=== PATIENT | male | born 1980 | race Caucasian/White ===

== ENCOUNTER 2017-05-09 20:42 | Emergency (ER) | payer MEDICAID ==
[2017-05-09 21:08] VITALS: BP 139/86; PULSE 83; RESP 18; TEMP 98.5; O2SAT 99
--- NOTE | 2017-05-09 21:18 | ED PDOC ---
HPI: Eye Injury/Pain Time Seen by Provider: 05/09/17 21:14 Chief Complaint (Nursing): Eye Problem Chief Complaint (Provider): Right eye redness and driange for 3 days History Per: Patient History/Exam Limitations: no limitations Onset/Duration Of Symptoms: Days Current Symptoms Are (Timing): Still Present Injury To Eye?: No Quality: Dull Associated Symptoms: FB Sensation, Itching Additional Complaint(s): Pt states when it first started he thought it was a sty because he gets them often. Pt states but it is different. PT reports clear yeallow crusty drainage. No change in vision. Past Medical History Reviewed: Historical Data, Nursing Documentation, Vital Signs Vital Signs: Last Vital Signs Temp 98.5 F 05/09/17 21:04 Pulse 83 05/09/17 21:04 Resp 18 05/09/17 21:04 BP 139/86 05/09/17 21:04 Pulse Ox 99 05/09/17 21:04 - Medical History PMH: Asthma Denies: Chronic Kidney Disease - Surgical History Surgical History: No Surg Hx - Family History Family History: States: Unknown Family Hx, Diabetes, Hypertension - Living Arrangements Living Arrangements: With Family - Social History Current smoker - smoking cessation education provided: No Alcohol: None Drugs: Denies - Immunization History Hx Tetanus Toxoid Vaccination: Yes Hx Influenza Vaccination: No Hx Pneumococcal Vaccination: Yes - Home Medications Home Medications: Ambulatory Orders Medication Instructions Recorded Albuterol Sulfate [Albuterol Hfa] 2 puff IH Q4 PRN #1 unit 07/27/15 Albuterol Sulfate [Albuterol 3 ml NEB Q6 PRN 07/27/15 Sulfate 2.5mg/3 ml 0.083%] Ibuprofen [Motrin] 1 tab PO TID PRN #30 tab 09/28/15 Promethazine HCl/Codeine 5 ml PO BID #1 syr 09/28/15 [Promethazine HCl-Codeine Phosphate 10 mg/5 ml] predniSONE [Prednisone] 20 mg PO BID #10 tab 09/28/15 Albuterol HFA [Ventolin HFA 90 2 puff IH Q4 PRN #1 inh 10/02/16 mcg/actuation (8 g)] Fluticasone/Salmeterol 250/50 1 puff IH Q12 #1 inh 10/02/16 [Advair Diskus] predniSONE [predniSONE Tab] 60 mg PO DAILY 5 Days 10/02/16 Polymyxin/Trimethoprim Sulfate 1 drop XX Q6H 10 Days 05/09/17 [Polytrim Ophth Soln] - Allergies Allergies/Adverse Reactions: Allergies Allergy/AdvReac Type Severity Reaction Status Date / Time No Known Allergies Allergy Verified 10/01/16 19:20 Review of Systems ROS Statement: Except As Marked, All Systems Reviewed And Found Negative Constitutional: Negative for: Fever, Chills Eyes: Positive for: Conjunctivae Inflammation, Eyelid Inflammation, Redness. Negative for: Vision Change Physical Exam - Reviewed Nursing Documentation Reviewed: Yes Vital Signs Reviewed: Yes - Physical Exam Appears: Positive for: Well, Non-toxic, No Acute Distress Head Exam: Positive for: ATRAUMATIC, NORMAL INSPECTION, NORMOCEPHALIC Skin: Positive for: Normal Color, Warm, DRY Eye Exam: Positive for: EOMI, PERRL, Conjunctival injection, Other (Yellow crutsy drainage on eye lashes ). Negative for: Normal appearance ENT: Positive for: Normal ENT Inspection Neck: Positive for: Normal, Painless ROM Respiratory: Negative for: Accessory Muscle Use, Respiratory Distress Back: Positive for: Normal Inspection Extremity: Positive for: Normal ROM. Negative for: Tenderness Neurologic/Psych: Positive for: Alert, Oriented - ECG O2 Sat by Pulse Oximetry: 99 Disposition - Clinical Impression Clinical Impression: Bacterial conjunctivitis - Patient ED Disposition Is Patient to be Admitted: No Counseled Patient/Family Regarding: Diagnosis, Need For Followup, Rx Given - Disposition Referrals: Gee Parekh MD [Staff Provider] - Disposition: Routine/Home Disposition Time: 21:18 Condition: GOOD Prescriptions: Polymyxin/Trimethoprim Sulfate [Polytrim Ophth Soln] 1 drop XX Q6H 10 Days Instructions: Conjunctivitis (ED)
== END 2017-05-09 21:39 | disposition home or self-care (01) ==
LOC: H.ER 20:42
DX: H10.89 Other conjunctivitis (principal)

== ENCOUNTER 2017-06-16 17:47 | Emergency (ER) | payer MEDICAID ==
[2017-06-16 18:40] VITALS: BP 127/70; PULSE 95; RESP 16; TEMP 98.4; O2SAT 96
--- NOTE | 2017-06-16 19:03 | ED PDOC ---
HPI: CCC, URI, Sore Throat Time Seen by Provider: 06/16/17 18:50 Chief Complaint (Nursing): ENT Problem Chief Complaint (Provider): Sore throat x 2 days - Chills History Per: Patient History/Exam Limitations: no limitations Onset/Duration Of Symptoms: Days Current Symptoms Are (Timing): Still Present Location Of Pain: Throat, Diffuse Myalgias Sick Contacts (Context): None Associated Symptoms: Chills, Sore Throat, Myalgias. denies: Fever, Cough, Sputum Ear Symptoms: Bilateral: None Severity: Moderate Pain Scale Rating Of: 5 Additional Complaint(s): Motrin at home. Past Medical History Reviewed: Historical Data, Nursing Documentation, Vital Signs Vital Signs: Last Vital Signs Temp 98.4 F 06/16/17 18:36 Pulse 95 H 06/16/17 18:36 Resp 16 06/16/17 18:36 BP 127/70 06/16/17 18:36 Pulse Ox 96 06/16/17 18:36 - Medical History PMH: Asthma Denies: Chronic Kidney Disease - Surgical History Surgical History: No Surg Hx - Family History Family History: States: Unknown Family Hx, Diabetes, Hypertension - Living Arrangements Living Arrangements: With Family - Social History Current smoker - smoking cessation education provided: No Alcohol: Occasional Drugs: Denies - Immunization History Hx Tetanus Toxoid Vaccination: Yes Hx Influenza Vaccination: No Hx Pneumococcal Vaccination: Yes - Home Medications Home Medications: Ambulatory Orders Medication Instructions Recorded Albuterol Sulfate [Albuterol Hfa] 2 puff IH Q4 PRN #1 unit 07/27/15 Albuterol Sulfate [Albuterol 3 ml NEB Q6 PRN 07/27/15 Sulfate 2.5mg/3 ml 0.083%] Ibuprofen [Motrin] 1 tab PO TID PRN #30 tab 09/28/15 Promethazine HCl/Codeine 5 ml PO BID #1 syr 09/28/15 [Promethazine HCl-Codeine Phosphate 10 mg/5 ml] predniSONE [Prednisone] 20 mg PO BID #10 tab 09/28/15 Albuterol HFA [Ventolin HFA 90 2 puff IH Q4 PRN #1 inh 10/02/16 mcg/actuation (8 g)] Fluticasone/Salmeterol 250/50 1 puff IH Q12 #1 inh 10/02/16 [Advair Diskus] predniSONE [predniSONE Tab] 60 mg PO DAILY 5 Days tab 10/02/16 Polymyxin/Trimethoprim Sulfate 1 drop XX Q6H 10 Days bottle 05/09/17 [Polytrim Ophth Soln] Amoxicillin 875 mg PO BID #20 tab 06/16/17 Prednisone 50 mg PO ONCE #1 tablet 06/16/17 - Allergies Allergies/Adverse Reactions: Allergies Allergy/AdvReac Type Severity Reaction Status Date / Time No Known Allergies Allergy Verified 06/16/17 18:36 Review of Systems ROS Statement: Except As Marked, All Systems Reviewed And Found Negative ENT: Positive for: Throat Pain. Negative for: Ear Pain Physical Exam - Reviewed Nursing Documentation Reviewed: Yes Vital Signs Reviewed: Yes - Physical Exam Appears: Positive for: Well, Non-toxic, No Acute Distress Head Exam: Positive for: ATRAUMATIC, NORMAL INSPECTION, NORMOCEPHALIC Skin: Positive for: Normal Color, Warm, DRY Eye Exam: Positive for: Normal appearance ENT: Positive for: Tonsillar Exudate, Tonsillar Swelling. Negative for: Normal ENT Inspection Neck: Positive for: Normal, Painless ROM Cardiovascular/Chest: Positive for: Regular Rate, Rhythm Respiratory: Positive for: Normal Breath Sounds. Negative for: Accessory Muscle Use Back: Positive for: Normal Inspection Extremity: Positive for: Normal ROM Neurologic/Psych: Positive for: Alert, Oriented - ECG O2 Sat by Pulse Oximetry: 96 Disposition - Clinical Impression Clinical Impression: Strep throat - Patient ED Disposition Is Patient to be Admitted: No Counseled Patient/Family Regarding: Diagnosis, Need For Followup, Rx Given - Disposition Disposition: Routine/Home Disposition Time: 19:02 Condition: GOOD Prescriptions: Amoxicillin 875 mg PO BID #20 tab Prednisone 50 mg PO ONCE #1 tablet Instructions: Strep Throat (ED)
== END 2017-06-16 23:15 | disposition home or self-care (01) ==
LOC: H.ER 17:47
DX: J02.0 Streptococcal pharyngitis (principal)

== ENCOUNTER 2018-08-02 08:55 | Emergency (ER) | payer BC, MEDICAID, OTHER ==
[2018-08-02] MEDS ORDERED: Albuterol-Ipratrop 3 mg / 0.5 (3 ml) UD INH STA (11:00)
[2018-08-02] MEDS ORDERED: Albuterol-Ipratrop 3 mg / 0.5 (3 ml) UD ONE ×2 (11:15→11:20)
--- NOTE | 2018-08-02 11:32 | ED PDOC ---
HPI: Influenza Time Seen by Provider: 08/02/18 10:24 Chief Complaint: Cough, Cold, Congestion History Per: Patient Additional complaint(s):: Pt. states on Wednesday morning he woke up with coughing and wheezing. Today while taking a shower cough became productive (yellow sputum). Pt. states he has been using his albuterol inhaler with minimal relief. States his albuterol inhaler has also ran out. Denies fever, hemoptysis, chest pain, previous intubations for asthma, sick contacts, recent travel. Past Medical History Reviewed: Historical Data, Nursing Documentation, Vital Signs Vital Signs: Last Vital Signs Temp 97.1 F L 08/02/18 09:18 Pulse 82 08/02/18 09:18 Resp 17 08/02/18 09:18 BP 116/76 08/02/18 09:18 Pulse Ox 97 08/02/18 09:18 - Medical History PMH: Asthma Denies: Chronic Kidney Disease - Surgical History Surgical History: No Surg Hx - Family History Family History: States: Diabetes, Hypertension - Immunization History Hx Tetanus Toxoid Vaccination: Yes Hx Influenza Vaccination: No Hx Pneumococcal Vaccination: Yes - Home Medications Home Medications: Ambulatory Orders Medication Instructions Recorded Mary-D 12 Hour Tablet 02/07/18 Amoxicillin 02/07/18 Cyclobenzaprine [Flexeril] 5 mg PO TID #21 tab 02/07/18 Lidocaine 5% [Lidoderm] 1 each TP DAILY #10 patch 02/07/18 Naproxen [Naprosyn] 500 mg PO BID #20 tab 02/07/18 Symbicort 80-4.5 Mcg Inhaler 02/07/18 Albuterol 0.083% [Albuterol 3 ml IH Q6 PRN #50 neb 08/02/18 Sulfate 3 Ml] Albuterol HFA [Ventolin HFA 90 2 puff IH [id number] PRN #120 puff 08/02/18 mcg/actuation (8 g)] Azithromycin [Zithromax] 250 mg PO DAILY #6 tab 08/02/18 Nebulizer [Aeroeclipse II] 1 each MC Q6 PRN #1 each 08/02/18 predniSONE [Prednisone] 3 tab PO DAILY #12 tab 08/02/18 - Allergies Allergies/Adverse Reactions: Allergies Allergy/AdvReac Type Severity Reaction Status Date / Time No Known Allergies Allergy Verified 02/07/18 21:36 Review of Systems ROS Statement: Except As Marked, All Systems Reviewed And Found Negative Respiratory: Positive for: Cough, Wheezing Physical Exam - Physical Exam Appears: Positive for: Well, Non-toxic, No Acute Distress (speaking in full sentences) Skin: Positive for: Normal Color, Warm. Negative for: Rash Eye Exam: Positive for: Normal appearance Cardiovascular/Chest: Positive for: Regular Rate, Rhythm Respiratory: Positive for: Wheezing (b/l expiratory wheezing). Negative for: Decreased Breath Sounds, Accessory Muscle Use, Crackles, Rales, Rhonchi, Respiratory Distress Gastrointestinal/Abdominal: Positive for: Soft. Negative for: Tenderness Neurologic/Psych: Positive for: Alert, Oriented (x3) - ECG O2 Sat by Pulse Oximetry: 97 - Radiology X-Ray: Read By Radiologist (CXR) X-Ray Interpretation: No Acute Disease - Progress ED Course And Treament: DuoNeb x 3, prednisone 60mg PO, CXR ordered. Initial peak flow: 250 1210 On re-evaluation, pt. in no distress. Reports SOB has improved but wheezing is still present. Post peak flow: 350 Albuterol neb x 3 ordered. 1308 On 2nd re-evaluation, pt. reports complete relief of wheezing and SOB. Lungs clear b/l. 2nd Post peak flow: 450. Pt. informed of CXR results and advised to return to ED immediately if symptoms worsen. Pt. agrees with plan and care. Disposition - Clinical Impression Clinical Impression: Bronchospasm, acute - Patient ED Disposition Is Patient to be Admitted: No - Disposition Referrals: Amy Jones [place] [Outside] Disposition: Routine/Home Disposition Time: 13:09 Condition: IMPROVED Additional Instructions: FOLLOW UP WITH PMD FOR FURTHER EVALUATION RETURN TO ED IMMEDIATELY IF SYMPTOMS WORSEN [place]SC[place], thank you for letting us take care of you today. Your provider was Francisco Steinberg MD and you were treated for COUGH. The emergency medical care you received today was directed at your acute symptoms. If you were prescribed any medication, please fill it and take as directed. It may take several days for your symptoms to resolve. Return to the Emergency Department if your symptoms worsen, do not improve, or if you have any other problems. Please contact your doctor or call one of the physicians/clinics you have been referred to that are listed on the Patient Visit Information form that is included in your discharge packet. Bring any paperwork you were given at discharge with you along with any medications you are taking to your follow up visit. Our treatment cannot replace ongoing medical care by a primary care provider outside of the emergency department. Thank you for allowing the [facility] team to be part of your care today. If you had an X-Ray or CT scan: A Radiologist will review the ED reading if any change in treatment is needed we will contact you. If you had a blood, urine, or wound culture: It will take several days for the results, if any change in treatment is needed we will contact you. If you had an STI test: It will take 48 hours for the results. Please call after 1 week if you have not heard back. Prescriptions: Albuterol HFA [Ventolin HFA 90 mcg/actuation (8 g)] 2 puff IH [id number] PRN #120 puff PRN Reason: Cough Albuterol 0.083% [Albuterol Sulfate 3 Ml] 3 ml IH Q6 PRN #50 neb PRN Reason: Wheezing Azithromycin [Zithromax] 250 mg PO DAILY #6 tab Nebulizer [Aeroeclipse II] 1 each MC Q6 PRN #1 each PRN Reason: Wheezing predniSONE [Prednisone] 3 tab PO DAILY #12 tab Instructions: Asthma, Adult (DC) Forms: [employer] ([place]), [facility] School/Work Excuse
--- NOTE | 2018-08-02 11:44 | RAD ---
Date of service: 08/02/2018 HISTORY: cough COMPARISON: 10/01/2016 TECHNIQUE: Chest PA and lateral FINDINGS: LUNGS: No active pulmonary disease. PLEURA: No significant pleural effusion identified. No pneumothorax apparent. CARDIOVASCULAR: No aortic atherosclerotic calcification present. Normal cardiac size. No pulmonary vascular congestion. OSSEOUS STRUCTURES: No significant abnormalities. VISUALIZED UPPER ABDOMEN: Normal. OTHER FINDINGS: None. IMPRESSION: No active disease.
[2018-08-02] MEDS ORDERED: Albuterol 0.083% Inhal Sol (2.5 mg/3 mL) UD INH STA (12:17)
[2018-08-02 13:27] VITALS: BP 121/74; PULSE 101; RESP 18; TEMP 98.2; O2SAT 93
== END 2018-08-02 13:26 | disposition home or self-care (01) ==
LOC: H.ER 08:55
DX: J98.01 Acute bronchospasm (principal)